=== PATIENT | female | born 1965 ===

== ENCOUNTER 2020-12-08 11:39 | Emergency (ER) | payer OTHER ==
[~2020-12-08] VITALS: Ht 165.1 cm; Wt 68.0 kg
[2020-12-08] MEDS ORDERED: TENORMIN50 M1 PO (12:31)
[2020-12-08] MEDS ORDERED: METFORMIN HCL1000 M2 PO (12:32)
== END 2020-12-08 17:27 | disposition home or self-care (01) ==
LOC: ER 11:39
DX: U07.1 COVID-19 (principal); J12.82 Pneumonia due to coronavirus disease 2019

== ENCOUNTER 2020-12-15 12:38 | Emergency (ER) | payer OTHER ==
[~2020-12-15] VITALS: Ht 157.5 cm; Wt 68.0 kg
[~2020-12-15 12:38] MED LIST: METFORMIN HCL1000 M2 PO; TENORMIN50 M1 PO
== END 2020-12-15 19:59 | disposition home or self-care (01) ==
LOC: ER 12:38
DX: A08.39 Other viral enteritis (principal)